=== PATIENT | female | born 2000 | race Caucasian/White ===

== ENCOUNTER 2023-02-26 13:56 | Emergency (ER) | payer OTHER ==
[~2023-02-26] VITALS: Ht 157.5 cm; Wt 61.2 kg
[2023-02-26 14:30] VITALS: BP 115/67; PULSE 76; RESP 17; TEMP 97.4; O2SAT 99
[2023-02-26] MEDS ORDERED: CEPH-588 PO (14:38)
[2023-02-26] MEDS ORDERED: BACTO TP (14:38)
== END 2023-02-26 14:59 | disposition home or self-care (01) ==
LOC: MED 13:56
DX: L01.00 Impetigo, unspecified (principal); Z79.899 Other long term (current) drug therapy
CPT/HCPCS: 99283